=== PATIENT | female | born 1975 | race Caucasian/White ===

== ENCOUNTER 2017-04-05 14:45 | Emergency (ER) | payer OTHER ==
[~2017-04-05] VITALS: Ht 149.9 cm; Wt 51.8 kg
[~2017-04-05 14:45] MED LIST: BUPRTAB51 PO; CLON0.3T PO; CLON1TAB3 PO; RTL20 PO; TOPI100T34 PO
[2017-04-05 14:58] VITALS: TEMP 36.9; Ht 149.9 cm; Wt 51.8 kg
[2017-04-05] MEDS ORDERED: SODIUM CHLORIDE 0.9% 1000ML 1,000 ML IV STA (15:06)
[2017-04-05] MEDS ORDERED: TOPI25TA99 PO (16:22)
[2017-04-05] MEDS ORDERED: NXM/40 PO (16:22)
[2017-04-05 16:26] LABS: BASO % 0.2 %; BASO ABS # 0.02 K/uL (0-0.2); COMPLETE YES; EOS % 1.4 %; HEMATOCRIT 39.7 % (37-47); IG% 0.4 %; LYMPH % 27.6 %; LYMPH ABS # 2.24 K/uL (1.2-3.4); MEAN CELL VOLUME 89.8 fL (80-100); MEAN CORPUSCULAR HGB CONC 34.5 g/dl (32-36); MEAN PLATELET VOLUME 9.6 fL (7.4-10.4); MONO % 5.8 %; NEUT % 64.6 %; PLATELET COUNT 277 K/uL (130-400); RED BLOOD COUNT 4.42 M/uL (4.2-5.4); WHITE BLOOD COUNT 8.13 K/uL (4.8-10.8)
[2017-04-05 16:40] LABS: PREG INTERNAL NEGATIVE QC NEG CLEAR BACKGROUND; PREG INTERNAL POSITIVE QC POS CONTROL LINE
[2017-04-05 16:43] LABS: BUN/CREATININE RATIO 13.6 (10-20); CALCIUM 8.6 mg/dl (8.5-10.1); CREATININE 0.68 mg/dl (0.60-1.20); POTASSIUM 3.7 mmol/L (3.5-5.1)
[2017-04-05] MEDS ORDERED: KETOROLAC TROMETHAMINE 60 MG/2 ML VIAL IM STA (17:21)
[2017-04-05] MEDS ORDERED: DICYCLOMINE HCL 10 MG/ML 2 ML AMP IM ONE (17:30)
--- NOTE | 2017-04-05 17:31 | DIAGNOSTIC IMAGING REPORT ---
EXAMINATION: PELVIC ULTRASOUND CLINICAL HISTORY: right pelvic pain PAIN COMPARISON STUDY: None FINDINGS: The uterus measured 8.2 cm. The endometrial stripe measured 4 mm. The right ovary measured 2.3 cm with normal vascular flow. The left ovary measured 2.5 cm with normal vascular flow. There is no ultrasonographic evidence of ovarian torsion. It should be noted that ovarian torsion can be present with normal Doppler ultrasonographic findings. There was no evidence of pathologic free pelvic fluid. IMPRESSION: Negative pelvic ultrasound Electronically signed by: Paul Elizondo M.D. 04/05/2017 5:29 PM Dictated Date/Time: 04/05/2017 5:28 PM
--- NOTE | 2017-04-05 17:50 | DIAGNOSTIC IMAGING REPORT ---
ABDOMEN AND PELVIS CT WITHOUT CONTRAST CT DOSE: 250.87 mGy.cm HISTORY: Pain Abdominal pain TECHNIQUE: Multiaxial CT images of the abdomen and pelvis were performed without contrast. COMPARISON STUDY: None. FINDINGS: Patchy parenchymal infiltrative changes versus basilar groundglass nodularity. This presumably is inflammatory although it should be followed to resolution. Liver spleen pancreas are unremarkable. Punctate nonobstructing lower pole renal calcifications bilaterally. Increased fecal material throughout the colon consistent with fecal stasis. The appendix appears unremarkable. Small/moderate amount of free fluid within the pelvic cul-de-sac. Nonobstructive bowel pattern. Bladder is midline. Small right ovarian cyst. IMPRESSION: Moderate free fluid within the pelvic cul-de-sac possibly secondary to small ovarian cyst rupture versus physiologic fluid. 2. Nonobstructing renal calcifications bilaterally. 3. Increased fecal load throughout the colon consistent with fecal stasis. Electronically signed by: Paul Elizondo M.D. 04/05/2017 5:48 PM Dictated Date/Time: 04/05/2017 5:43 PM
[2017-04-05 18:20] VITALS: BP 134/83; PULSE 88; O2SAT 96
--- NOTE | 2017-04-05 22:35 | EMERGENCY ROOM VISIT NOTE ---
History Report prepared by Rey: Marie Richards Under the Supervision of: Dr. Wesley Talavera M.D. First contact with patient: 15:03 Chief Complaint: FLANK PAIN Stated Complaint: HABING SUPER BAD PAIN ON R SIDE, (WILL EXPLAIN) History of Present Illness The patient is a 41 year old female who presents to the Emergency Room with complaints of persistent abdominal pain starting 4 days ago. The pain is also present in the upper right thigh and groin area. The pain worsens with eating or drinking and bending over. Whenever she eats anything, her abdomen begins to cramp. She has never experienced this pain before. She reports she feels dehydrated. The patient is on Depo shots because her menstrual cramps are severe. Recently her clinic closed down. She went to the hospital and her PCP and neither would administer the shots for her. She went to the animal store and bought a syringe and administered the Depo herself. She has had 3 children. She has a history of tubal ligation. She denies any other abdominal surgeries. She is currently on her period. Pt denies LOC, headache, fevers, chills, diaphoresis, visual changes, neck pain, chest pain, breathing difficulties, nausea, vomiting, back pain, melena, hematochezia, urinary symptoms, numbness, weakness, lymphadenopathy, rash, or other complaints. Source of History: patient Onset: 4 days ago Position: abdomen Quality: cramping Timing: other (persistent) Modifying Factors (Worsening): eating, movement Note: Pt reports right upper thigh and right groin pain. Review of Systems See HPI for pertinent positives and negatives. A total of ten systems were reviewed and were otherwise negative. Past Medical & Surgical Medical Problems: (1) IVDU (intravenous drug user) Surgical Problems: (1) S/P tubal ligation Family History Heart disease Social History Smoking Status: Current Every Day Smoker Marital Status: Occupation Status: unemployed Current/Historical Medications Scheduled Bupropion (Wellbutrin-Xl), 300 MG PO DAILY Clonazepam (Klonopin), 1 MG PO BID Clonidine Hcl (Catapres), 0.3 MG PO QID Esomeprazole Magnesium (Nexium), 40 MG PO BID Methylphenidate (Ritalin), 20 MG PO TID Topiramate (Topamax ), 25 MG PO QID Allergies Coded Allergies: No Known Allergies (Unverified , 04/05/17) Physical Exam Vital Signs Date Time Temp Pulse Resp B/P Pulse Ox O2 Delivery O2 Flow Rate FiO2 04/05/17 18:20 88 18 134/83 96 Room Air 04/05/17 14:58 36.9 120 20 132/80 100 Room Air Physical Exam GENERAL: Tearful, uncomfortable appearing. HENT: Normocephalic, atraumatic. Oropharynx unremarkable. EYES: Normal conjunctiva. Sclera non-icteric. NECK: Supple. No nuchal rigidity. FROM. No JVD. RESPIRATORY: Clear to auscultation. CARDIAC: Regular rate, normal rhythm. Extremities warm and well perfused. Pulses equal. ABDOMEN: Soft, non-distended. Diffuse tenderness to palpation, worse in the RLQ. No rebound or guarding. No masses. RECTAL: Deferred. MUSCULOSKELETAL: Chest examination reveals no tenderness. The back is symmetrical on inspection without obvious abnormality. There is no CVA tenderness to palpation. No joint edema. LOWER EXTREMITIES: Calves are equal size bilaterally and non-tender. No edema. No discoloration. NEURO: Normal sensorium. No sensory or motor deficits noted. SKIN: No rash or jaundice noted. Medical Decision & Procedures ER Provider Diagnostic Interpretation: Radiology results as stated below per my review and radiologist interpretation: EXAMINATION: PELVIC ULTRASOUND CLINICAL HISTORY: right pelvic pain PAIN COMPARISON STUDY: None FINDINGS: The uterus measured 8.2 cm. The endometrial stripe measured 4 mm. The right ovary measured 2.3 cm with normal vascular flow. The left ovary measured 2.5 cm with normal vascular flow. There is no ultrasonographic evidence of ovarian torsion. It should be noted that ovarian torsion can be present with normal Doppler ultrasonographic findings. There was no evidence of pathologic free pelvic fluid. IMPRESSION: Negative pelvic ultrasound Electronically signed by: Paul Elizondo M.D. 04/05/2017 5:29 PM Dictated Date/Time: 04/05/2017 5:28 PM A[address]OMEN AND PELVIS CT WITHOUT CONTRAST CT DOSE: 250.87 mGy.cm HISTORY: Pain Abdominal pain TECHNIQUE: Multiaxial CT images of the abdomen and pelvis were performed without contrast. COMPARISON STUDY: None. FINDINGS: Patchy parenchymal infiltrative changes versus basilar groundglass nodularity. This presumably is inflammatory although it should be followed to resolution. Liver spleen pancreas are unremarkable. Punctate nonobstructing lower pole renal calcifications bilaterally. Increased fecal material throughout the colon consistent with fecal stasis. The appendix appears unremarkable. Small/moderate amount of free fluid within the pelvic cul-de-sac. Nonobstructive bowel pattern. Bladder is midline. Small right ovarian cyst. IMPRESSION: Moderate free fluid within the pelvic cul-de-sac possibly secondary to small ovarian cyst rupture versus physiologic fluid. 2. Nonobstructing renal calcifications bilaterally. 3. Increased fecal load throughout the colon consistent with fecal stasis. Electronically signed by: Paul Elizondo M.D. 04/05/2017 5:48 PM Dictated Date/Time: 04/05/2017 5:43 PM Laboratory Results 04/05/17 16:15 Red Blood Count 4.42, Mean Corpuscular Volume 89.8, Mean Corpuscular Hemoglobin 31.0, Mean Corpuscular Hemoglobin Concent 34.5, Mean Platelet Volume 9.6, Neutrophils (%) (Auto) 64.6, Lymphocytes (%) (Auto) 27.6, Monocytes (%) (Auto) 5.8, Eosinophils (%) (Auto) 1.4, Basophils (%) (Auto) 0.2, Neutrophils # (Auto) 5.26, Lymphocytes # (Auto) 2.24, Monocytes # (Auto) 0.47, Eosinophils # (Auto) 0.11, Basophils # (Auto) 0.02 04/05/17 16:15 Test 04/05/17 16:15 White Blood Count 8.13 K/uL (4.8-10.8) Red Blood Count 4.42 M/uL (4.2-5.4) Hemoglobin 13.7 g/dL (12.0-16.0) Hematocrit 39.7 % (37-47) Mean Corpuscular Volume 89.8 fL (80-100) Mean Corpuscular Hemoglobin 31.0 pg (25-34) Mean Corpuscular Hemoglobin Concent 34.5 g/dl (32-36) Platelet Count 277 K/uL (130-400) Mean Platelet Volume 9.6 fL (7.4-10.4) Neutrophils (%) (Auto) 64.6 % Lymphocytes (%) (Auto) 27.6 % Monocytes (%) (Auto) 5.8 % Eosinophils (%) (Auto) 1.4 % Basophils (%) (Auto) 0.2 % Neutrophils # (Auto) 5.26 K/uL (1.4-6.5) Lymphocytes # (Auto) 2.24 K/uL (1.2-3.4) Monocytes # (Auto) 0.47 K/uL (0.11-0.59) Eosinophils # (Auto) 0.11 K/uL (0-0.5) Basophils # (Auto) 0.02 K/uL (0-0.2) RDW Standard Deviation 45.2 fL (36.4-46.3) RDW Coefficient of Variation 13.7 % (11.5-14.5) Immature Granulocyte % (Auto) 0.4 % Immature Granulocyte # (Auto) 0.03 K/uL (0.00-0.02) Anion Gap 8.0 mmol/L (3-11) Est Creatinine Clear Calc Drug Dose 75.1 ml/min Estimated GFR () 126.8 Estimated GFR (Non- 109.4 BUN/Creatinine Ratio 13.6 (10-20) Calcium Level 8.6 mg/dl (8.5-10.1) Total Bilirubin 0.8 mg/dl (0.2-1) Direct Bilirubin 0.5 mg/dl (0-0.2) Aspartate Amino Transf (AST/SGOT) 86 U/L (15-37) Alanine Aminotransferase (ALT/SGPT) 147 U/L (12-78) Alkaline Phosphatase 152 U/L (45-117) Total Protein 7.5 gm/dl (6.4-8.2) Albumin 3.3 gm/dl (3.4-5.0) Lipase 72 U/L (73-393) Human Chorionic Gonadotropin, Qual NEG (NEG) Laboratory results reviewed by nc ED Course 1504: The patient was evaluated in room A3. A complete history and physical exam was performed. 1840: The patient has refused to wait while I was with a critically ill patient and has eloped. Medical Decision Triage Nursing notes reviewed. The patient's presentation and history were concerning for abdominal pain. Etiologies such as appendicitis, diverticulitis, obstruction, inflammatory bowel disease, renal colic, PUD, biliary pathology, pancreatitis, mesenteric ischemia, aortic pathology, infections, genitourinary, UTI, perforated viscus, ovarian pathology, , PID, as well as others were entertained. The patient was evaluated. She was uncomfortable. She was tearful. She states that her primary physician and critical hospital would not administer her Depo-Provera. She noted that she administered this herself the injection. The patient notes a history of IVDA. She has a history of tubal ligation. An IV was attempted to be established. Unfortunately IV access cannot be obtained and the patient refused additional attempts after several were made with IV team and nursing. Blood work was obtained. The patient initially wanted to leave however nursing convinced her to stay for imaging. She did not provide a urine specimen. CT, ultrasound, and blood work were done. Her CBC, chemistry panel, test were unremarkable. The patient did not give a urinalysis. Her LFTs were elevated. Given her history this was concerning. Hepatitis labs were ordered. Patient refused additional lab work. CT imaging showed some pelvic free fluid concerning for possible cyst rupture on the ultrasound was unremarkable. The patient had fecal stasis noted. I did order Toradol and Bentyl IM. Prior to receiving the medications the patient refused any additional treatment. She was upset and left the emergency department before, and speak with her. There was time delay because of the inability to get her IV and blood work. The patient went through imaging and as I was waiting for results I did update the patient. I was then involved with a critically ill patient and unfortunately could not breakaway secondary to the other patient's condition. I was unable to stop the patient from leaving without results. The charge nurse was notified and the patient will be contacted tomorrow AM so that she can follow up with her primary physician regarding her possible cyst rupture, fecal stasis, elevated LFTs, and her blood pressure. 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 Again, the patient left before her evaluation was fully completed. The chart was completed utilizing [employer] Speech voice recognition software. Grammatical errors, random word insertions, pronoun errors, and incomplete sentences are an occasional consequence of this system due to software limitations, ambient noise, and hardware issues. Any formal questions or concerns about the content, text, or information contained within the body of this dictation should be directly addressed to the physician for clarification. [place] Drug Monitoring Program Search Results: patient reviewed within database, see additional documentation Drug Monitoring Findings: Primary physician's prescriptions noted. Impression Primary Impression: Right lower quadrant abdominal pain Additional Impressions: Elevated LFTs fecal stasis Scribe Attestation The scribe's documentation has been prepared under my direction and personally reviewed by me in its entirety. I confirm that the note above accurately reflects all work, treatment, procedures, and medical decision making performed by me. Departure Information Dispostion Other (elopement) Referrals Luis Fernando Mijares D.O. (PCP) Patient Instructions My [facility] Problem Qualifiers
== END 2017-04-05 18:40 | disposition left against medical advice (07) ==
LOC: C.EDB 14:46 → C.EDA 18:40
DX: R10.31 Right lower quadrant pain (principal); E78.9 Disorder of lipoprotein metabolism, unspecified; K59.8 Other specified functional intestinal disorders; F17.200 Nicotine dependence, unspecified, uncomplicated; Z98.51 Tubal ligation status; Z79.899 Other long term (current) drug therapy; Z82.49 Family history of ischemic heart disease and other diseases of the circulatory system